=== PATIENT | female | born 1985 | race Two or more races ===

== ENCOUNTER → 2018-05-11 | Outpatient (CLI) | payer OTHER ==
[2018-05-11 12:22] LABS: HCG, SERUM QUANTITATIVE 9 MIU/ML
== END ==
LOC: M LRY 09:47
DX: O02.1 Missed abortion (principal)
CPT/HCPCS: 84702

== ENCOUNTER → 2018-09-02 | Outpatient (REF) | payer OTHER | LOC: M SFHCLERA 16:16 | DX: R53.81 Other malaise (principal) ==

== ENCOUNTER → 2018-12-23 | Outpatient (CLI) | payer OTHER ==
[2018-12-23 16:45] LABS: HEMATOCRIT 32.1 % (36.0-47.0); MEAN CORPUSCULAR HGB CONC 34.3 g/dl (32.0-36.5); MEAN CORPUSCULAR VOLUME 90.4 fl (80.0-96.0); PLATELET COUNT, AUTOMATED 174 10^3/uL (150-450); RED BLOOD COUNT 3.55 10^6/uL (4.00-5.40); WHITE BLOOD COUNT 9.1 10^3/uL (4.0-10.0)
== END ==
LOC: M LRY 13:01
PROVIDERS: ATTEND Nurse Practitioner Women's Health
DX: Z36.89 Encounter for other specified antenatal screening (principal)

== ENCOUNTER → 2019-02-13 | Outpatient (REF) | payer OTHER | LOC: M LAB REF 16:50 | PROVIDERS: ATTEND Nurse Practitioner Women's Health | DX: Z34.83 Encounter for supervision of other normal pregnancy, third trimester (principal) ==

== ENCOUNTER 2019-06-21 09:50 | Emergency (ER) | payer OTHER ==
[~2019-06-21] VITALS: Ht 157.5 cm; Wt 69.1 kg
[2019-06-21] MEDS ORDERED: JENC0.35 PO (09:57)
[2019-06-21] MEDS ORDERED: NON-325T5 PO (09:57)
[2019-06-21] MEDS ORDERED: IBUP-1022 PO (09:57)
[2019-06-21] MEDS ORDERED: CEFD1CAP8 PO (11:15)
[2019-06-21 11:19] VITALS: BP 120/78
== END 2019-06-21 11:23 | disposition home or self-care (01) ==
LOC: M ED 09:50
DX: N15.9 Renal tubulo-interstitial disease, unspecified (principal); Z88.5 Allergy status to narcotic agent; Z79.3 Long term (current) use of hormonal contraceptives